=== PATIENT | female | born 1955 ===

== ENCOUNTER 2016-10-12 17:58 | Emergency (ER) | payer MEDICAID ==
[2016-10-12 18:34] VITALS: BMI 28.8
[2016-10-12 18:38] VITALS: BP 115/79; PULSE 97; RESP 17; TEMP 98.6; O2SAT 95
--- NOTE | 2016-10-12 18:46 | ED PDOC ---
Arrival/HPI - General Chief Complaint: Lower Extremity Problem/Injury Time Seen by Provider: 10/12/16 18:38 Historian: Patient - History of Present Illness Narrative History of Present Illness (Text): 10/12/16 18:43 61yo female in ED for complaint of left foot pain and back pain s/p trauma. States she slipped while walking and fell, landing on her back. She is not sure how she injured her foot. Foot pain is with weight bearing. Back pain is with movement. Denies hitting her had any where. Denies LOC, nausea, vomiting, focal weakness, focal/urinary incontinence, hitting head anywhere, visual change. Past Medical History - Provider Review Nursing Documentation Reviewed: Yes - Infectious Disease Hx of Infectious Diseases: None - Reproductive Menopause: Yes - Cardiac Hx Cardiac Disorders: Yes Hx Hypertension: Yes - Pulmonary Hx Respiratory Disorders: No - Neurological Hx Neurological Disorder: No - HEENT Hx HEENT Disorder: No - Renal Hx Renal Disorder: No - Endocrine/Metabolic Hx Endocrine Disorders: No - Hematological/Oncological Hx Blood Disorders: No - Integumentary Hx Dermatological Disorder: No - Musculoskeletal/Rheumatological Hx Musculoskeletal Disorders: No - Gastrointestinal Hx Gastrointestinal Disorders: No - Genitourinary/Gynecological Hx Genitourinary Disorders: No - Psychiatric Hx Psychophysiologic Disorder: Yes Hx Depression: Yes Hx Substance Use: No - Anesthesia Hx Anesthesia: No Hx Anesthesia Reactions: No Hx Malignant Hyperthermia: No Family/Social History - Physician Review Nursing Documentation Reviewed: Yes Family/Social History: Unknown Family HX Smoking Status: Never Smoked Hx Alcohol Use: No Hx Substance Use: No Allergies/Home Meds Allergies/Adverse Reactions: Allergies No Known Allergies Allergy (Verified 08/31/15 14:11) Review of Systems - Physician Review All systems were reviewed & negative as marked: Yes - Review of Systems Constitutional: Normal Eyes: Normal ENT: Normal Respiratory: Normal Cardiovascular: Normal Gastrointestinal: Normal Genitourinary Female: Normal Musculoskeletal: Arthralgias (LEft foot/ankle pain), Back Pain Skin: Normal Neurological: Normal Endocrine: Normal Hemo/Lymphatic: Normal Psychiatric: Normal Physical Exam Vital Signs Reviewed: Yes Vital Signs Temp Pulse Resp BP Pulse Ox 10/12/16 18:34 98.6 F 97 H 17 115/79 95 10/12/16 17:59 98.6 F 9 L 17 115/79 95 Temperature: Afebrile Blood Pressure: Normal Pulse: Regular Respiratory Rate: Normal Appearance: Positive for: Well-Appearing, Non-Toxic, Comfortable Pain Distress: None Mental Status: Positive for: Alert and Oriented X 3 - Systems Exam Head: Present: Atraumatic, Normocephalic Pupils: Present: PERRL Extroacular Muscles: Present: EOMI Conjunctiva: Present: Normal Mouth: Present: Moist Mucous Membranes Neck: Present: Normal Range of Motion Respiratory/Chest: Present: Clear to Auscultation, Good Air Exchange. No: Respiratory Distress, Accessory Muscle Use Cardiovascular: Present: Regular Rate and Rhythm, Normal S1, S2. No: Murmurs Abdomen: Present: Normal Bowel Sounds. No: Tenderness, Distention, Peritoneal Signs Back: Present: Paraspinal Tenderness (LEft paralumbar tenderness). No: Midline Tenderness, Pain with Leg Raise Upper Extremity: Present: Normal Inspection. No: Cyanosis, Edema Lower Extremity: Present: NORMAL PULSES, Normal ROM, Tenderness (Lateral left foot), Neurovascularly Intact. No: Edema, Swelling, Erythema, Deformity, Temperature Abnormalties Neurological: Present: GCS=15, CN II-XII Intact, Speech Normal Skin: Present: Warm, Dry, Normal Color. No: Rashes Psychiatric: Present: Alert, Oriented x 3, Normal Insight, Normal Concentration Medical Decision Making ED Course and Treatment: 10/12/16 19:34 Ls xray - No acute finding Left foot - No acute fracture noted Erich wrap applied to foot and ortho shoe given. Cane given. PT ambulated with a cane Referred to his PMD/ortho. TRT ED for any new or worsening symptoms - RAD Interpretation Radiology Orders: 10/12/16 18:39 ANKLE LEFT 3 VIEWS ROUTINE [RAD] Stat 10/12/16 18:40 LS SPINE WITH OBL > 18 YRS OLD [RAD] Stat 10/12/16 18:42 FOOT LEFT 3 VIEWS ROUTINE [RAD] Stat - Medication Orders Current Medication Orders: Discontinued Medications Cyclobenzaprine HCl (Flexeril) 10 mg PO STAT STA Stop: 10/12/16 18:44 Last Admin: 10/12/16 18:55 Dose: 10 MG Ketorolac Tromethamine (Toradol) 60 mg IM STAT STA Stop: 10/12/16 18:44 Last Admin: 10/12/16 18:55 Dose: 60 MG IM Administration Charges Document 10/12/16 18:55 SRE (Rec: 10/12/16 18:55 SRE [id number]) Injection Site MAR Injection Site Left Gluteus Kirill Charges for Administration # of IM Administrations 1 Disposition/Present on Arrival - Present on Arrival Any Indicators Present on Arrival: No History of DVT/PE: No History of Uncontrolled Diabetes: No Urinary Catheter: No History of Decub. Ulcer: No History Surgical Site Infection Following: None - Disposition Have Diagnosis and Disposition been Completed?: Yes Diagnosis: Back pain, Foot sprain Disposition: HOME/ ROUTINE Disposition Time: 19:40 Patient Plan: Discharge Condition: STABLE Discharge Instructions (ExitCare): Back Pain (ED), Foot Sprain (ED) Additional Instructions: Follow up with your doctor/Orthopedist Return to ED for any new or worsening symptoms Prescriptions: Cyclobenzaprine [Cyclobenzaprine HCl] 10 mg PO TID #10 tab Naproxen [Naprosyn] 500 mg PO BID #20 tab Referrals: Jaquan Stringer III, MD [Medical Doctor] - Follow up with primary
--- NOTE | 2016-10-13 10:48 | RAD ---
PROCEDURE: Left Ankle Radiographs. HISTORY: ankle pain s/p trauma COMPARISON: None FINDINGS: BONES: Normal. No fracture. JOINTS: Normal. No osteoarthritis. Ankle mortise maintained. Talar dome intact SOFT TISSUES: Several small calcifications within the lower pretibial soft tissues possibly vascular in origin. . OTHER FINDINGS: None. IMPRESSION: No evidence of acute displaced fracture nor dislocation. Small posterior and at tiny plantar surface calcaneal enthesophytes.
--- NOTE | 2016-10-13 11:46 | RAD ---
PROCEDURE: Left Foot Radiographs. HISTORY: foot pain s/p trauma COMPARISON: None. FINDINGS: BONES: Normal. No fracture. No evidence of acute displaced fracture nor dislocation. Small posterior and at tiny plantar surface calcaneal enthesophytes. JOINTS: Normal. SOFT TISSUES: Normal. OTHER FINDINGS: None. IMPRESSION: No evidence of acute displaced fracture nor dislocation. Small posterior and at tiny plantar surface calcaneal enthesophytes.
--- NOTE | 2016-10-13 13:19 | RAD ---
PROCEDURE: Radiographs of the Lumbar Spine. HISTORY: back pain s/p trauma COMPARISON: No prior. FINDINGS: BONES: Normal alignment. No listhesis. No fracture. DISC SPACES: Disc degenerative changes lower thoracic spine. OTHER FINDINGS: None. IMPRESSION: No acute findings related to/accounting for the clinical presentation.
== END 2016-10-12 19:52 | disposition home or self-care (01) ==
LOC: ED 17:58
DX: M54.9 Dorsalgia, unspecified (principal); S93.602A Unspecified sprain of left foot, initial encounter; W01.0XXA Fall on same level from slipping, tripping and stumbling without subsequent striking against object, initial encounter; Y93.01 Activity, walking, marching and hiking
CPT/HCPCS: 72110; 73610; 73630; 96372; 99285; J1885

== ENCOUNTER 2016-11-02 18:30 | Emergency (ER) | payer MEDICAID ==
[2016-11-02 18:30] VITALS: BMI 28.8
[2016-11-02 18:40] VITALS: TEMP 98.2
--- NOTE | 2016-11-02 19:07 | ED PDOC ---
Arrival/HPI - General Chief Complaint: Shortness Of Breath Time Seen by Provider: 11/02/16 19:06 Historian: Patient - History of Present Illness Narrative History of Present Illness (Text): 11/02/16 19:06 Patient is 61 y/o F, history of bronchitis who presents to the emergency department with small headache and some shortness of breath after inhaling fumes prior to arrival. Patient states she was trying to unclog pipes with 100% ammonia. She states she was in a small enclosed bathroom and felt like she was about to be overcome by the fumes. She states she was wearing a t-shirt over her mouth and the ammonia did not splash on her, only the fumes were inhaled. No chest pain, dizziness, or other complaints. She reports that she still has some headache but the shortness of breath has resolved. Time/Duration: Prior to Arrival Symptom Onset: Sudden Symptom Course: Unchanged Modifying Factors (Text): None Past Medical History - Provider Review Nursing Documentation Reviewed: Yes - Infectious Disease Hx of Infectious Diseases: None - Cardiac Hx Cardiac Disorders: Yes Hx Hypertension: Yes - Pulmonary Hx Respiratory Disorders: No - Neurological Hx Neurological Disorder: No - HEENT Hx HEENT Disorder: No - Renal Hx Renal Disorder: No - Endocrine/Metabolic Hx Endocrine Disorders: No - Hematological/Oncological Hx Blood Disorders: No - Integumentary Hx Dermatological Disorder: No - Musculoskeletal/Rheumatological Hx Musculoskeletal Disorders: No - Gastrointestinal Hx Gastrointestinal Disorders: No - Genitourinary/Gynecological Hx Genitourinary Disorders: No - Psychiatric Hx Psychophysiologic Disorder: Yes Hx Depression: Yes Hx Substance Use: No - Anesthesia Hx Anesthesia: No Hx Anesthesia Reactions: No Hx Malignant Hyperthermia: No Family/Social History - Physician Review Nursing Documentation Reviewed: Yes Family/Social History: Unknown Family HX Smoking Status: Never Smoked Hx Alcohol Use: No Hx Substance Use: No Allergies/Home Meds Allergies/Adverse Reactions: Allergies No Known Allergies Allergy (Verified 11/02/16 18:36) Home Medications: Home Meds Medication Instructions Recorded Confirmed Lorazepam [Ativan] 1 tab PO DAILY 11/02/16 11/02/16 QUEtiapine [SEROquel] 50 mg PO DAILY 11/02/16 11/02/16 Sertraline [Zoloft] 50 mg PO DAILY 11/02/16 11/02/16 Zolpidem [Ambien] 10 mg PO HS 11/02/16 11/02/16 Review of Systems - Review of Systems Eyes: absent: Vision Changes ENT: absent: Hearing Changes Respiratory: SOB Cardiovascular: absent: Chest Pain Gastrointestinal: absent: Abdominal Pain, Nausea, Vomiting Genitourinary Female: absent: Dysuria, Frequency, Hematuria Musculoskeletal: absent: Arthralgias Skin: absent: Rash Neurological: Headache Endocrine: absent: Diaphoresis Psychiatric: absent: Depression Physical Exam Vital Signs Reviewed: Yes Vital Signs Temp Pulse Resp BP Pulse Ox 11/02/16 20:12 80 16 121/70 100 11/02/16 19:20 13 100 11/02/16 19:10 13 127/76 100 11/02/16 18:39 98.2 F 91 H 24 94/69 L 99 Temperature: Afebrile Blood Pressure: Normal Pulse: Regular Respiratory Rate: Normal Appearance: Positive for: Well-Appearing, Non-Toxic, Comfortable Pain Distress: None Mental Status: Positive for: Alert and Oriented X 3 - Systems Exam Head: Present: Atraumatic, Normocephalic Pupils: Present: PERRL Extroacular Muscles: Present: EOMI Conjunctiva: Present: Normal Mouth: Present: Moist Mucous Membranes Pharnyx: No: ERYTHEMA, EXUDATE Neck: Present: Normal Range of Motion Respiratory/Chest: Present: Clear to Auscultation, Good Air Exchange. No: Respiratory Distress, Accessory Muscle Use Cardiovascular: Present: Regular Rate and Rhythm, Normal S1, S2. No: Murmurs Abdomen: Present: Normal Bowel Sounds. No: Tenderness, Distention, Peritoneal Signs Back: Present: Normal Inspection Upper Extremity: Present: Normal Inspection. No: Cyanosis, Edema Lower Extremity: Present: Normal Inspection. No: Edema Neurological: Present: GCS=15, CN II-XII Intact, Speech Normal Skin: Present: Warm, Dry, Normal Color. No: Rashes Psychiatric: Present: Alert, Oriented x 3, Normal Insight, Normal Concentration Medical Decision Making ED Course and Treatment: 11/02/16 19:08 EKG shows NSR at 86bpm with normal intervals and no ST changes Patient presenting after inhalation ammonia fumes. Mouth was covered with tshirt and there was no splash injury. Patient is well appearing, saturating normally, talking in complete sentences and has lungs cta b/l. Spoke to poison control who recommends observation for 1-2 hours. Patient instructed on importance of wearing mask and gloves when using ammonia and to not use it in an enclosed space. On reevaluation patient reports headache resolved after tylenol. She continues to be well appearing, saturating normally and in NAD. Patient has been monitored for 1.5 hours per poison control and continues to be asymptomatic. Will dc. - Medication Orders Current Medication Orders: Discontinued Medications Acetaminophen (Tylenol 325mg Tab) 975 mg PO STAT STA Stop: 11/02/16 19:09 Last Admin: 11/02/16 19:21 Dose: 975 mg Disposition/Present on Arrival - Present on Arrival Any Indicators Present on Arrival: No History of DVT/PE: No History of Uncontrolled Diabetes: No Urinary Catheter: No History of Decub. Ulcer: No History Surgical Site Infection Following: None - Disposition Have Diagnosis and Disposition been Completed?: Yes Diagnosis: Adverse effect of inhaled anesthetic Disposition: HOME/ ROUTINE Disposition Time: 19:47 Patient Plan: Discharge Patient Problems: Current Active Problems Problem Status Onset Adverse effect of inhaled anesthetic Acute Condition: GOOD Print Language: CITIZEN OF [place] Additional Instructions: Use care when working with chemicals. Do not use ammonia in an enclosed space. Only use ammonia while wearing mask and gloves. Follow-up with PMD within 2 days. Return to ED if condition worsens. Forms: [employer] [facility] Discharge (Greenlandic)
[2016-11-02 19:11] VITALS: O2SAT 100
[2016-11-02 20:14] VITALS: BP 121/70; PULSE 80; RESP 16
--- NOTE | 2016-11-03 15:38 | CARD ---
APPROVED REPORT EKG Measurement Heart [id number] CT [id number] [id number] <Conclusion> Normal sinus rhythm Cannot rule out Inferior infarct, age undetermined Abnormal ECG
== END 2016-11-02 20:15 | disposition home or self-care (01) ==
LOC: ED 18:30
DX: T41.0X1A Poisoning by inhaled anesthetics, accidental (unintentional), initial encounter (principal); Y92.89 Other specified places as the place of occurrence of the external cause

== ENCOUNTER 2017-04-20 00:10 | Emergency (ER) | payer MEDICAID ==
[2017-04-20] MEDS ORDERED: Promethazine/Cod 6.25mg-10mg/5ml Syr UD PO STA (00:26)
[2017-04-20] MEDS ORDERED: Albuterol-Ipratrop 3 mg / 0.5 (3 ml) UD IH STA (00:26)
[2017-04-20 00:27] VITALS: BP 118/79; PULSE 91; TEMP 98.3; BMI 32.5
--- NOTE | 2017-04-20 00:29 | ED PDOC ---
Arrival/HPI - General Chief Complaint: Shortness Of Breath Time Seen by Provider: 04/20/17 00:17 Historian: Patient - History of Present Illness Narrative History of Present Illness (Text): 04/20/17 00:24 Sabina Valiente is a 62 year old female, whose past medical history includes hypertension, who presents to the Emergency department complaining of shortness of breath tonight. Patient states she has been experiencing fever, productive cough, and chest discomfort after coughing for the past 2-3 days. Patient states she developed shortness of breath tonight, became concerned, and came to ED for further evaluation. Patient denies any nausea, vomiting, diarrhea, urinary symptoms, back pain, neck pain, headache, dizziness, or any other complaints. Time/Duration: < week (2-3 days) Symptom Onset: Gradual Symptom Course: Unchanged Activities at Onset: Light Context: Home Past Medical History - Provider Review Nursing Documentation Reviewed: Yes - Infectious Disease Hx of Infectious Diseases: None - Cardiac Hx Cardiac Disorders: Yes Hx Hypertension: Yes - Pulmonary Hx Respiratory Disorders: No - Neurological Hx Neurological Disorder: No - HEENT Hx HEENT Disorder: No - Renal Hx Renal Disorder: No - Endocrine/Metabolic Hx Endocrine Disorders: No - Hematological/Oncological Hx Blood Disorders: No - Integumentary Hx Dermatological Disorder: No - Musculoskeletal/Rheumatological Hx Musculoskeletal Disorders: No - Gastrointestinal Hx Gastrointestinal Disorders: No - Genitourinary/Gynecological Hx Genitourinary Disorders: No - Psychiatric Hx Psychophysiologic Disorder: Yes Hx Depression: Yes Hx Substance Use: No - Anesthesia Hx Anesthesia: No Hx Anesthesia Reactions: No Hx Malignant Hyperthermia: No Family/Social History - Physician Review Nursing Documentation Reviewed: Yes Family/Social History: Unknown Family HX Smoking Status: Never Smoked Hx Alcohol Use: No Hx Substance Use: No Allergies/Home Meds Allergies/Adverse Reactions: Allergies No Known Allergies Allergy (Verified 11/02/16 18:36) Home Medications: Home Meds Medication Instructions Recorded Confirmed Lorazepam [Ativan] 1 tab PO DAILY 11/02/16 04/20/17 QUEtiapine [SEROquel] 50 mg PO DAILY 11/02/16 04/20/17 Sertraline [Zoloft] 50 mg PO DAILY 11/02/16 04/20/17 Zolpidem [Ambien] 10 mg PO HS 05/05/17 10/21/17 Review of Systems - Physician Review All systems were reviewed & negative as marked: Yes - Review of Systems Constitutional: Fevers Eyes: Normal ENT: Normal Respiratory: SOB, Cough, Sputum Cardiovascular: Chest Pain Gastrointestinal: Normal. absent: Abdominal Pain, Diarrhea, Nausea, Vomiting Genitourinary Female: Normal. absent: Dysuria, Frequency, Hematuria, Urine Output Changes Musculoskeletal: Normal. absent: Back Pain, Neck Pain Skin: Normal. absent: Rash Neurological: Normal. absent: Headache, Dizziness Endocrine: Normal Hemo/Lymphatic: Normal Psychiatric: Normal Physical Exam Vital Signs Reviewed: Yes Vital Signs Temp Pulse Resp BP Pulse Ox 04/20/17 02:07 18 99 04/20/17 01:59 19 98 04/20/17 00:25 98.3 F 91 H 20 118/79 97 Temperature: Afebrile Blood Pressure: Normal Pulse: Regular Respiratory Rate: Normal Appearance: Positive for: Well-Appearing, Non-Toxic Pain Distress: None Mental Status: Positive for: Alert and Oriented X 3 - Systems Exam Head: Present: Atraumatic, Normocephalic Pupils: Present: PERRL Extroacular Muscles: Present: EOMI Conjunctiva: Present: Normal Mouth: Present: Moist Mucous Membranes Neck: Present: Normal Range of Motion Respiratory/Chest: Present: Clear to Auscultation, Good Air Exchange. No: Respiratory Distress, Accessory Muscle Use Cardiovascular: Present: Regular Rate and Rhythm, Normal S1, S2. No: Murmurs Abdomen: Present: Normal Bowel Sounds. No: Tenderness, Distention, Peritoneal Signs Back: Present: Normal Inspection Upper Extremity: Present: Normal Inspection. No: Cyanosis, Edema Lower Extremity: Present: Normal Inspection. No: Edema Neurological: Present: GCS=15, CN II-XII Intact, Speech Normal Skin: Present: Warm, Dry, Normal Color. No: Rashes Psychiatric: Present: Alert, Oriented x 3, Normal Insight, Normal Concentration Medical Decision Making ED Course and Treatment: 04/20/17 00:24 Impression: 62 year old female complaining of fever, productive cough, chest discomfort, and shortness of breath. Differential Diagnosis included but are not limited to: bronchitis vs. pneumonia Plan: -- EKG -- CXR -- Labs -- Duoneb -- Phenergan/Codeine -- Reassess and disposition Prior Visits: Notes and results from previous visits were reviewed. On 11/02/2016, pt was seen in the Emergency department for headache and shortness of breath after inhaling cleaning fumes. Pt was d/c home. Progress Notes: Reviewed EKG, NSR at 88 bpm. Non-specific ST/T wave changes. 04/20/17 01:35 Reviewed radiology, CXR shows no acute processes. 04/20/17 01:48 On reevaluation the patient feels better and is in no acute distress. I have discussed the results and plan with the patient, who expresses understanding. Patient given the opportunity to ask question, all questions were answered and there is agreement with the plan to discharge the patient home. Patient is stable for discharge. Patient was instructed to follow up with physician/clinic in 1-2 days or return if symptoms persist/worsen or new concerning symptoms arise. Re-evaluation Time: 01:48 Reassessment Condition: Re-examined, Improved - Lab Interpretations Lab Results: 04/20/17 00:49 04/20/17 00:49 Lab Results 04/20/17 00:49: Sodium 142, Potassium 4.1, Chloride 107, Carbon Dioxide 25, Anion Gap 14, BUN 18, Creatinine 0.7, Est GFR ( Amer) > 60, Est GFR (Non- Af Amer) > 60, Random Glucose 131 H, Calcium 9.6, Total Bilirubin 0.5, AST 30, ALT 33, Alkaline Phosphatase 101, Total Protein 7.6, Albumin 4.2, Globulin 3.4, Albumin/Globulin Ratio 1.2 04/20/17 00:49: WBC 12.7 H, RBC 4.98, Hgb 14.4, Hct 40.0, MCV 80.3, MCH 28.9, MCHC 36.0, RDW 14.4, Plt Count 290, MPV 10.2, Gran % 59.0, Lymph % (Auto) 28.1, Hubbard % (Auto) 8.9 H, Eos % (Auto) 3.5, Baso % (Auto) 0.5, Gran # 7.50 H, Lymph # 3.6 H, Hubbard # 1.1 H, Eos # 0.5, Baso # 0.07 I have reviewed the lab results: Yes - RAD Interpretation Radiology Orders: 04/20/17 00:25 CHEST TWO VIEWS (PA/LAT) [RAD] Stat Staff Research Associate: ED Physician - EKG Interpretation Interpreted by ED Physician: Yes Type: 12 lead EKG - Medication Orders Current Medication Orders: Discontinued Medications Albuterol/Ipratropium (Duoneb 3 Mg/0.5 Mg (3 Ml) Ud) 3 ml IH STAT STA Stop: 04/20/17 00:27 Last Admin: 04/20/17 00:55 Dose: 3 ml Promethazine HCl/Codeine (Phenergan/Codeine Oral Syrup) 5 ml PO ONCE STA Stop: 04/20/17 00:27 Last Admin: 04/20/17 00:55 Dose: 5 ml - Scribe Statement The provider has reviewed the documentation as recorded by the Scribe Tere Sy All medical record entries made by the Scribe were at my direction and personally dictated by me. I have reviewed the chart and agree that the record accurately reflects my personal performance of the history, physical exam, medical decision making, and the department course for this patient. I have also personally directed, reviewed, and agree with the discharge instructions and disposition. Disposition/Present on Arrival - Present on Arrival Any Indicators Present on Arrival: No History of DVT/PE: No History of Uncontrolled Diabetes: No Urinary Catheter: No History of Decub. Ulcer: No History Surgical Site Infection Following: None - Disposition Have Diagnosis and Disposition been Completed?: Yes Diagnosis: Bronchitis Disposition: HOME/ ROUTINE Disposition Time: 01:48 Condition: GOOD Discharge Instructions (ExitCare): Acute Bronchitis (ED) Prescriptions: levoFLOXacin [Levaquin] 500 mg PO DAILY #10 tab Promethazine/Codeine [Codeine/Promethazine 10 MG/5 Ml-6.25 MG/5 Ml] 5 ml PO QID #160 ml Albuterol HFA [Ventolin HFA] 1 puff IH QID #1 puff Referrals: Sandy Mccray MD [Primary Care Provider] - Follow up with primary Forms: [employer] (Al[place]ian)
[2017-04-20 00:55] LABS: BASO # 0.07 K/mm3 (0.0-2.0); BASO % 0.5 % (0.0-3.0); EOS # 0.5 (0.0-0.7); EOS % 3.5 % (1.5-5.0); GRAN # 7.5 (1.4-6.5); LYMPH # 3.6 (1.2-3.4); LYMPH % 28.1 % (22.0-35.0); MEAN CELL VOLUME 80.3 fl (80.0-105.0); MEAN CORPUSCULAR HEMOGLOBIN 28.9 pg (25.0-35.0); MEAN PLATELET VOLUME 10.2 fl (7.0-11.0); MONO # 1.1 (0.1-0.6); MONO % 8.9 % (1.0-6.0); RED CELL DISTRIBUTION WIDTH 14.4 % (11.5-14.5); WHITE BLOOD COUNT 12.7 10^3/ul (4.5-11.0)
[2017-04-20 01:04] LABS: ALB/GLOB RATIO 1.2 (1.1-1.8); ALKALINE PHOSPHATASE 101 U/L (38-126); ALT/SGPT 33 U/L (7-56); AST/SGOT 30 U/L (14-36); BILIRUBIN,TOTAL 0.5 mg/dL (0.2-1.3); BLOOD UREA NITROGEN 18 mg/dL (7-21); CALCIUM 9.6 mg/dL (8.4-10.5); CARBON DIOXIDE 25 mmol/L (21-33); CHLORIDE 107 mmol/L (98-107); GFR AFRICAN-AMERICAN > 60; GLUCOSE,RANDOM 131 mg/dL (70-110); POTASSIUM 4.1 mmol/L (3.6-5.0); SODIUM 142 mmol/L (132-148); TOTAL PROTEIN 7.6 g/dL (5.8-8.3)
[2017-04-20 02:08] VITALS: RESP 18; O2SAT 99
--- NOTE | 2017-04-20 10:19 | RAD ---
HISTORY: fall COMPARISON: 06/27/2015 TECHNIQUE: Chest PA and lateral FINDINGS: LUNGS: No active pulmonary disease. PLEURA: No significant pleural effusion identified. No pneumothorax apparent. CARDIOVASCULAR: Normal. OSSEOUS STRUCTURES: No significant abnormalities. VISUALIZED UPPER ABDOMEN: Normal. OTHER FINDINGS: None. IMPRESSION: No active disease.
--- NOTE | 2017-04-20 14:36 | CARD ---
APPROVED REPORT EKG Measurement Heart [id number] <Conclusion> Normal sinus rhythm Low voltage QRS Possible Inferior infarct, age undetermined Abnormal ECG
== END 2017-04-20 02:08 | disposition home or self-care (01) ==
LOC: ED 00:10
DX: J20.9 Acute bronchitis, unspecified (principal); I10 Essential (primary) hypertension

== ENCOUNTER 2017-05-31 16:54 | Emergency (ER) | payer MEDICAID ==
[2017-05-31 17:04] VITALS: BMI 29.1
[2017-05-31] MEDS ORDERED: Albuterol-Ipratrop 3 mg / 0.5 (3 ml) UD IH STA ×2 (17:10→17:24)
--- NOTE | 2017-05-31 17:18 | ED PDOC ---
Arrival/HPI - General Chief Complaint: Cough, Cold, Congestion Time Seen by Provider: 05/31/17 17:02 - History of Present Illness Narrative History of Present Illness (Text): 05/31/17 17:17 62 yo female, hx o htn, presents with cough for last 3 days, cp with coughing, subjective dyspnea, and subjective fever. no vomiting no diarrhea, no other complaints Past Medical History - Infectious Disease Hx of Infectious Diseases: None - Cardiac Hx Cardiac Disorders: Yes Hx Hypertension: Yes - Pulmonary Hx Respiratory Disorders: No - Neurological Hx Neurological Disorder: No - HEENT Hx HEENT Disorder: No - Renal Hx Renal Disorder: No - Endocrine/Metabolic Hx Endocrine Disorders: No - Hematological/Oncological Hx Blood Disorders: No - Integumentary Hx Dermatological Disorder: No - Musculoskeletal/Rheumatological Hx Musculoskeletal Disorders: No - Gastrointestinal Hx Gastrointestinal Disorders: No - Genitourinary/Gynecological Hx Genitourinary Disorders: No - Psychiatric Hx Psychophysiologic Disorder: Yes Hx Depression: Yes Hx Substance Use: No - Anesthesia Hx Anesthesia: No Hx Anesthesia Reactions: No Hx Malignant Hyperthermia: No Family/Social History - Physician Review Nursing Documentation Reviewed: Yes Family/Social History: Unknown Family HX Smoking Status: Never Smoked Hx Alcohol Use: No Hx Substance Use: No Allergies/Home Meds Allergies/Adverse Reactions: Allergies No Known Allergies Allergy (Verified 05/31/17 17:05) Review of Systems - Review of Systems Constitutional: Normal Eyes: Normal ENT: Normal Respiratory: SOB, Cough Cardiovascular: Chest Pain Gastrointestinal: Normal Genitourinary Female: Normal Musculoskeletal: Normal Skin: Normal Neurological: Normal Endocrine: Normal Hemo/Lymphatic: Normal Psychiatric: Normal Physical Exam Vital Signs Temp Pulse Resp BP Pulse Ox 05/31/17 18:31 98.1 F 96 H 18 134/72 100 05/31/17 17:50 98.2 F 98 H 17 130/72 100 05/31/17 17:03 98.3 F 90 18 122/75 99 Temperature: Afebrile Blood Pressure: Normal Pulse: Regular Respiratory Rate: Normal Appearance: Positive for: Well-Appearing, Non-Toxic, Comfortable Pain Distress: None Mental Status: Positive for: Alert and Oriented X 3 - Systems Exam Head: Present: Atraumatic, Normocephalic Pupils: Present: PERRL Extroacular Muscles: Present: EOMI Conjunctiva: Present: Normal Mouth: Present: Moist Mucous Membranes Neck: Present: Normal Range of Motion Respiratory/Chest: Present: Good Air Exchange, Wheezes (scattered). No: Respiratory Distress, Accessory Muscle Use Cardiovascular: Present: Regular Rate and Rhythm, Normal S1, S2. No: Murmurs Abdomen: Present: Normal Bowel Sounds. No: Tenderness, Distention, Peritoneal Signs Back: Present: Normal Inspection Upper Extremity: Present: Normal Inspection. No: Cyanosis, Edema Lower Extremity: Present: Normal Inspection. No: Edema Neurological: Present: GCS=15, CN II-XII Intact, Speech Normal Skin: Present: Warm, Dry, Normal Color. No: Rashes Psychiatric: Present: Alert, Oriented x 3, Normal Insight, Normal Concentration Medical Decision Making ED Course and Treatment: 05/31/17 17:30 ekg nsr [address] wave change changes - Lab Interpretations Lab Results: 05/31/17 17:18 05/31/17 17:18 Lab Results 05/31/17 17:18: Sodium 142, Potassium 4.5, Chloride 105, Carbon Dioxide 29, Anion Gap 12, BUN 16, Creatinine 0.8, Est GFR ( Amer) > 60, Est GFR (Non- Af Amer) > 60, Random Glucose 145 H, Calcium 9.8, Magnesium 2.1, Total Bilirubin 0.6, AST 33, ALT 29, Alkaline Phosphatase 109, Lactate Dehydrogenase 567, Total Creatine Kinase 58, Troponin I < 0.01, NT-Pro-B Natriuret Pep 138, Total Protein 7.9, Albumin 4.3, Globulin 3.6, Albumin/Globulin Ratio 1.2 05/31/17 17:18: PT 11.3, INR 1.04, APTT 30.4 05/31/17 17:18: WBC 9.3 D, RBC 4.88, Hgb 14.1, Hct 39.8, MCV 81.6, MCH 28.9, MCHC 35.4, RDW 14.7 H, Plt Count 303, MPV 10.1, Gran % 60.9, Lymph % (Auto) 25.6 , [place] % (Auto) 8.4 H, Eos % (Auto) 4.1, Baso % (Auto) 1.0, Gran # 5.66, Lymph # 2.4, [place] # 0.8 H, Eos # 0.4, Baso # 0.09 - RAD Interpretation Radiology Orders: 05/31/17 17:09 CHEST PORTABLE [RAD] Stat - Medication Orders Current Medication Orders: Discontinued Medications Acetaminophen (Tylenol 325mg Tab) 975 mg PO STAT STA Stop: 05/31/17 18:00 Last Admin: 05/31/17 18:06 Dose: 975 mg MAR Pain/Vitals Document 05/31/17 18:06 IT (Rec: 05/31/17 18:06 IT [id number]) Pain Reassessment Is This A Pain ReAssessment? No Sleep Is patient sleeping during reassessment? No Presence of Pain Presence of Pain Yes Pain Scale Used Pain Scale Used Numeric Albuterol/Ipratropium (Duoneb 3 Mg/0.5 Mg (3 Ml) Ud) 3 ml IH STAT STA Stop: 05/31/17 17:11 Last Admin: 05/31/17 17:21 Dose: 3 ml Albuterol/Ipratropium (Duoneb 3 Mg/0.5 Mg (3 Ml) Ud) 3 ml IH STAT STA Stop: 05/31/17 17:25 Last Admin: 05/31/17 17:44 Dose: 3 ml Methylprednisolone (Solu-Medrol) 125 mg IVP STAT STA Stop: 05/31/17 17:11 Last Admin: 05/31/17 17:21 Dose: 125 mg IVP Administration Document 05/31/17 17:21 IT (Rec: 05/31/17 17:21 IT [id number]) Charges for Administration # of IVP Administrations 1 Disposition/Present on Arrival - Present on Arrival Any Indicators Present on Arrival: No History of DVT/PE: No History of Uncontrolled Diabetes: No Urinary Catheter: No History of Decub. Ulcer: No History Surgical Site Infection Following: None - Disposition Have Diagnosis and Disposition been Completed?: Yes Diagnosis: Acute bronchitis Disposition: HOME/ ROUTINE Disposition Time: 07:00 Condition: STABLE Discharge Instructions (ExitCare): Acute Bronchitis (ED), How to Use a Nebulizer (ED) Additional Instructions: please follow up with your doctor. return to er with worsening symptoms or concerns. Prescriptions: Albuterol HFA [Ventolin HFA 90 mcg/actuation (8 g)] 2 puff IH [id number] PRN #1 puff PRN Reason: Wheezing Prednisone 50 mg PO DAILY #5 tab Referrals: [facility], [Non-Staff] - Follow up with primary Forms: [employer] (Swedish)
[2017-05-31 17:34] LABS: BASO # 0.09 K/mm3 (0.0-2.0); EOS # 0.4 (0.0-0.7); EOS % 4.1 % (1.5-5.0); GRAN # 5.66 (1.4-6.5); GRAN % 60.9 % (50.0-68.0); HEMATOCRIT 39.8 % (36.0-48.0); LYMPH # 2.4 (1.2-3.4); LYMPH % 25.6 % (22.0-35.0); MEAN CELL VOLUME 81.6 fl (80.0-105.0); MEAN CORPUSCULAR HEMOGLOBIN 28.9 pg (25.0-35.0); MEAN CORPUSCULAR HGB CONC 35.4 g/dl (31.0-37.0); MEAN PLATELET VOLUME 10.1 fl (7.0-11.0); MONO # 0.8 (0.1-0.6); MONO % 8.4 % (1.0-6.0); RED CELL DISTRIBUTION WIDTH 14.7 % (11.5-14.5); WHITE BLOOD COUNT 9.3 10^3/ul (4.5-11.0)
[2017-05-31 17:41] LABS: INR 1.04 (0.93-1.08); PARTIAL THROMBOPLASTIN TIME 30.4 Seconds (25.1-36.5)
[2017-05-31 17:47] LABS: ALB/GLOB RATIO 1.2 (1.1-1.8); ALKALINE PHOSPHATASE 109 U/L (38-126); ALT/SGPT 29 U/L (7-56); AST/SGOT 33 U/L (14-36); BILIRUBIN,TOTAL 0.6 mg/dL (0.2-1.3); BLOOD UREA NITROGEN 16 mg/dL (7-21); CALCIUM 9.8 mg/dL (8.4-10.5); CARBON DIOXIDE 29 mmol/L (21-33); CHLORIDE 105 mmol/L (98-107); GFR AFRICAN-AMERICAN > 60; GLUCOSE,RANDOM 145 mg/dL (70-110); MAGNESIUM 2.1 mg/dL (1.7-2.2); POTASSIUM 4.5 mmol/L (3.6-5.0); SODIUM 142 mmol/L (132-148); TOTAL PROTEIN 7.9 g/dL (5.8-8.3)
[2017-05-31 17:51] VITALS: O2SAT 100
[2017-05-31 17:58] LABS: TROPONIN I < 0.01 ng/mL
[2017-05-31 18:33] VITALS: BP 134/72; PULSE 96; RESP 18; TEMP 98.1
--- NOTE | 2017-05-31 19:53 | RAD ---
HISTORY: cough COMPARISON: Chest x-ray performed 04/20/17 TECHNIQUE: Chest, one view. FINDINGS: Examination limited by habitus. LUNGS: No focal consolidation. Please note that chest x-ray has limited sensitivity for the detection of pulmonary masses. PLEURA: No significant pleural effusion identified. No definite pneumothorax . CARDIOVASCULAR: The cardiomediastinal silhouette appears within normal limits of size. OSSEOUS STRUCTURES: No acute osseous abnormality identified. VISUALIZED UPPER ABDOMEN: Unremarkable. OTHER FINDINGS: None. IMPRESSION: No focal consolidation, significant pleural effusion, or definite pneumothorax identified.
--- NOTE | 2017-06-01 22:04 | CARD ---
APPROVED REPORT EKG Measurement Heart [id number] [id number] <Conclusion> Normal sinus rhythm Low voltage QRS Borderline ECG
== END 2017-05-31 18:35 | disposition home or self-care (01) ==
LOC: ED 16:54
DX: J20.9 Acute bronchitis, unspecified (principal)
CPT/HCPCS: 71010; 80053; 82550; 83615; 83735; 83880; 84484; 85025; 85610; 85730; 93005; 94640; 96374; 99283; J2930

== ENCOUNTER 2017-12-01 19:39 | Emergency (ER) | payer MEDICAID ==
[2017-12-01 19:39] VITALS: BMI 29.1
[2017-12-01 20:32] VITALS: TEMP 97.9
--- NOTE | 2017-12-01 21:13 | ED PDOC ---
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 Pt reports sore throat, fever/chills and bodyaches one day after her partner came down with the same symptoms. Pt was admitted 2 weeks ago for an antibiotic reaction for a UTI. Pt says she has frequent UTIs and is always put on the same medication. She does not want any antibiotics given today. Denies dysuria, hematuria, chest pain, shortness of breath, stomach pain, nausea, vomiting or diarrhea. She did not receive a flu vaccine this season. States she already took Tylenol and ibuprofen for fever and chills 12/01/17 21:29 Time/Duration: Prior to Arrival Symptom Onset: Gradual Symptom Course: Unchanged Quality: Aching Severity Level: 2, Mild Activities at Onset: Rest Context: Home Past Medical History - Provider Review Nursing Documentation Reviewed: Yes - Travel History Have you recently traveled outside [place] w/in the past 3 mons?: No - Infectious Disease Hx of Infectious Diseases: None - Cardiac Hx Cardiac Disorders: Yes Hx Hypertension: Yes - Pulmonary Hx Respiratory Disorders: No - Neurological Hx Neurological Disorder: No - HEENT Hx HEENT Disorder: No - Renal Hx Renal Disorder: No - Endocrine/Metabolic Hx Endocrine Disorders: No - Hematological/Oncological Hx Blood Disorders: No - Integumentary Hx Dermatological Disorder: No - Musculoskeletal/Rheumatological Hx Musculoskeletal Disorders: No - Gastrointestinal Hx Gastrointestinal Disorders: No - Genitourinary/Gynecological Hx Genitourinary Disorders: No - Psychiatric Hx Psychophysiologic Disorder: Yes Hx Depression: Yes Hx Substance Use: No - Anesthesia Hx Anesthesia: No Hx Anesthesia Reactions: No Hx Malignant Hyperthermia: No Family/Social History - Physician Review Nursing Documentation Reviewed: Yes Family/Social History: Unknown Family HX Smoking Status: Never Smoked Hx Alcohol Use: No Hx Substance Use: No Allergies/Home Meds Allergies/Adverse Reactions: Allergies No Known Allergies Allergy (Verified 05/31/17 17:05) Review of Systems - Review of Systems Constitutional: Normal, Fevers Eyes: Normal ENT: Normal, Sore Throat, Rhinorrhea. absent: Hearing Changes Respiratory: Normal. absent: SOB, Cough Cardiovascular: Normal. absent: Chest Pain Gastrointestinal: Normal. absent: Abdominal Pain, Stool Changes Genitourinary Female: Normal. absent: Dysuria Musculoskeletal: Normal, Arthralgias Skin: Normal Neurological: Normal, Headache Endocrine: Normal. absent: Diaphoresis Hemo/Lymphatic: Normal Psychiatric: Normal Physical Exam Vital Signs Temp Pulse Resp BP Pulse Ox 12/01/17 23:16 80 16 146/72 99 12/01/17 19:40 97.9 F 87 18 134/79 97 Temperature: Afebrile Blood Pressure: Normal Pulse: Regular Respiratory Rate: Normal Appearance: Positive for: Well-Appearing, Non-Toxic, Comfortable Pain Distress: Mild Mental Status: Positive for: Alert and Oriented X 3 - Systems Exam Head: Present: Atraumatic, Normocephalic Pupils: Present: PERRL Extroacular Muscles: Present: EOMI Conjunctiva: Present: Normal Ears: Present: Normal Mouth: Present: Moist Mucous Membranes Pharnyx: Present: ERYTHEMA. No: EXUDATE, TONSILS ENLARGED Neck: Present: Normal Range of Motion Respiratory/Chest: Present: Clear to Auscultation, Good Air Exchange. No: Respiratory Distress, Accessory Muscle Use Cardiovascular: Present: Regular Rate and Rhythm, Normal S1, S2. No: Murmurs Abdomen: Present: Normal Bowel Sounds. No: Tenderness, Distention, Peritoneal Signs Back: Present: Normal Inspection Upper Extremity: Present: Normal Inspection. No: Cyanosis, Edema Lower Extremity: Present: Normal Inspection. No: Edema Neurological: Present: GCS=15, CN II-XII Intact, Speech Normal Skin: Present: Warm, Dry, Normal Color. No: Rashes Psychiatric: Present: Alert, Oriented x 3, Normal Insight, Normal Concentration Medical Decision Making ED Course and Treatment: 12/01/17 21:28 Impression Pt is a 62 yr old female who presents to the ED for flu-like symptoms x 1 day. Mild erythema of the posterior pharynx, no other sig findings on exam; no suprapubic pain but has joint and muscle pain on palpation Plan Labs Rapid Flu Assess and dispo 12/01/17 21:29 Progress Note WBC mildly elevated 12.9 but remains afebrile UA shows small leuk esterase; pt states she recently came off of UTI treatment Advised to drink plenty of fluids and get rest; may require antibiotics for UTI if she becomes symptomatic Follow up with PMD on Saturday Pt hemodynamically stable on d/c - Lab Interpretations Lab Results: 12/01/17 21:30 12/01/17 21:30 Lab Results 12/01/17 21:45: Urine Color Yellow, Urine Appearance Clear, Urine pH 6.5, Ur Specific [place] 1.025, Urine Protein Trace H, Urine Glucose (UA) Negative, Urine Ketones Negative, Urine Blood Negative, Urine Nitrate Negative, Urine Bilirubin Negative, Urine Urobilinogen 1.0 H, Ur Leukocyte Esterase Small H, Urine RBC Negative, Urine WBC 1 - 3, Ur Epithelial Cells 1 - 3, Calcium Oxalate Crystal Trace 12/01/17 21:30: Sodium 143, Potassium 3.8, Chloride 108 H, Carbon Dioxide 23, Anion Gap 16, BUN 13, Creatinine 0.7, Est GFR ( Amer) > 60, Est GFR (Non- Af Amer) > 60, Random Glucose 110, Calcium 9.0, Total Bilirubin 0.2, AST 23, ALT 27, Alkaline Phosphatase 99, Total Protein 7.3, Albumin 4.0, Globulin 3.3, Albumin/Globulin Ratio 1.2 12/01/17 21:30: Influenza Typ A,B (EIA) Negative for flu a/b 12/01/17 21:30: WBC 12.4 H D, RBC 4.72, Hgb 13.6, Hct 37.4, MCV 79.2 L, MCH 28.8 , MCHC 36.4, RDW 14.6 H, Plt Count 298, MPV 10.1, Gran % 56.7, Lymph % (Auto) 33.8, Davis % (Auto) 5.6, Eos % (Auto) 3.3, Baso % (Auto) 0.6, Gran # 7.04 H, Lymph # (Auto) 4.2 H, Davis # (Auto) 0.7 H, Eos # (Auto) 0.4, Baso # (Auto) 0.08 I have reviewed the lab results: Yes Interpretation: Abnormal lab values Disposition/Present on Arrival - Present on Arrival Any Indicators Present on Arrival: Yes History of DVT/PE: No History of Uncontrolled Diabetes: No Urinary Catheter: No History of Decub. Ulcer: No History Surgical Site Infection Following: None - Disposition Have Diagnosis and Disposition been Completed?: Yes Diagnosis: Influenza, Arthralgia Disposition: HOME/ ROUTINE Disposition Time: 22:38 Patient Plan: Discharge Condition: STABLE Discharge Instructions (ExitCare): Flu, Adult (DC), Joint Pain Additional Instructions: Sabina, thank you for letting us take care of you today. Your provider was JESSENIA Eason. You were treated for Influenza and bodyaches. The emergency medical care you received today was directed at your acute symptoms. If you were prescribed any medication, please fill it and take as directed. It may take several days for your symptoms to resolve. Return to the Emergency Department if your symptoms worsen, do not improve, or if you have any other problems. You will need to drink plenty of fluids and get rest over the next few days and take Tylenol of Motrin for fever and pain If you have worsening of symptoms such as a high fever (greater than 103F), return to the emergency department for evaluation or see Dr Mccray Please contact your doctor or call one of the physicians/clinics you have been referred to that are listed on the Patient Visit Information form that is included in your discharge packet. Bring any paperwork you were given at discharge with you along with any medications you are taking to your follow up visit. Our treatment cannot replace ongoing medical care by a primary care provider (PCP) outside of the emergency department. Thank you for allowing the [facility] team to be part of your care today. Forms: [employer] (Yakut)
[2017-12-01 21:35] LABS: BASO # 0.08 K/mm3 (0.0-2.0); BASO % 0.6 % (0.0-3.0); EOS # 0.4 (0.0-0.7); EOS % 3.3 % (1.5-5.0); GRAN # 7.04 (1.4-6.5); GRAN % 56.7 % (50.0-68.0); HEMOGLOBIN 13.6 g/dL (12.0-16.0); LYMPH # 4.2 (1.2-3.4); LYMPH % 33.8 % (22.0-35.0); MEAN CELL VOLUME 79.2 fl (80.0-105.0); MEAN CORPUSCULAR HEMOGLOBIN 28.8 pg (25.0-35.0); MEAN CORPUSCULAR HGB CONC 36.4 g/dl (31.0-37.0); MEAN PLATELET VOLUME 10.1 fl (7.0-11.0); MONO # 0.7 (0.1-0.6); MONO % 5.6 % (1.0-6.0); RBC 4.72 10^6/uL (3.5-6.1); RED CELL DISTRIBUTION WIDTH 14.6 % (11.5-14.5); WHITE BLOOD COUNT 12.4 10^3/ul (4.5-11.0)
[2017-12-01 21:46] LABS: ALB/GLOB RATIO 1.2 (1.1-1.8); ALT/SGPT 27 U/L (7-56); AST/SGOT 23 U/L (14-36); BLOOD UREA NITROGEN 13 mg/dL (7-21); GFR AFRICAN-AMERICAN > 60; GFR NON-AFRICAN AMERICAN > 60
[2017-12-01 22:10] LABS: PH,URINE 6.5 (4.7-8.0); URINE APPEARANCE CLEAR (CLEAR); URINE BILIRUBIN NEGATIVE (NEGATIVE); URINE BLOOD NEGATIVE (NEGATIVE); URINE COLOR YELLOW (YELLOW); URINE GLUCOSE (UA) NEGATIVE (NEGATIVE); URINE LEUKOCYTE ESTERASE SMALL Leu/uL (NEGATIVE); URINE PROTEIN TRACE mg/dL (<30 mg/dL)
[2017-12-01 22:17] LABS: URINE CALCIUM OXALATE CRYSTALS TRACE /hpf; URINE RBC NEGATIVE /hpf (0-2)
[2017-12-01 23:17] VITALS: BP 146/72; PULSE 80; RESP 16; O2SAT 99
== END 2017-12-01 23:16 | disposition home or self-care (01) ==
LOC: ED 19:39
DX: J11.1 Influenza due to unidentified influenza virus with other respiratory manifestations (principal); M25.50 Pain in unspecified joint; I10 Essential (primary) hypertension

== ENCOUNTER 2018-10-30 19:14 | Emergency (ER) | payer MEDICAID ==
[2018-10-30 19:29] VITALS: BMI 31.5
[2018-10-30 19:35] VITALS: RESP 18; TEMP 98.2
[2018-10-30] MEDS ORDERED: Sodium Chloride 0.9% 1,000 ML IV STA (19:53)
--- NOTE | 2018-10-30 19:55 | ED PDOC ---
Arrival/HPI - General Chief Complaint: Abdominal Pain Time Seen by Provider: 10/30/18 19:47 - History of Present Illness Narrative History of Present Illness (Text): 63 y/o F p/w L flank pain x 1 month. Pain radiates to LLQ, associated with nausea. Denies fever, chills, chest pain, dyspnea, vomiting, diarrhea. Past Medical History - Provider Review Nursing Documentation Reviewed: Yes - Infectious Disease Hx of Infectious Diseases: None - Cardiac Hx Cardiac Disorders: Yes Hx Hypertension: Yes - Pulmonary Hx Respiratory Disorders: No - Neurological Hx Neurological Disorder: No - HEENT Hx HEENT Disorder: No - Renal Hx Renal Disorder: No - Endocrine/Metabolic Hx Endocrine Disorders: No - Hematological/Oncological Hx Blood Disorders: No - Integumentary Hx Dermatological Disorder: No - Musculoskeletal/Rheumatological Hx Musculoskeletal Disorders: No Hx Back Pain: Yes - Gastrointestinal Hx Gastrointestinal Disorders: No - Genitourinary/Gynecological Hx Genitourinary Disorders: No - Psychiatric Hx Psychophysiologic Disorder: Yes Hx Depression: Yes Hx Substance Use: No - Anesthesia Hx Anesthesia: No Hx Anesthesia Reactions: No Hx Malignant Hyperthermia: No Family/Social History - Physician Review Nursing Documentation Reviewed: Yes Family/Social History: No Known Family HX Smoking Status: Never Smoked Hx Alcohol Use: No Hx Substance Use: No Allergies/Home Meds Allergies/Adverse Reactions: Allergies No Known Allergies Allergy (Verified 10/30/18 19:28) Review of Systems - Physician Review All systems were reviewed & negative as marked: Yes - Review of Systems Constitutional: absent: Fevers Respiratory: absent: SOB Physical Exam - Physical Exam Narrative Physical Exam (Text): gen nad head nc/at eyes perrl ent mmm neck supple chest no tenderness cv reg rate lungs cta b/l abd soft, nt back L flank tenderness, no cva tenderness skin no rash neuro alert extremities no edema Vital Signs Temp Pulse Resp BP Pulse Ox 10/30/18 19:34 98.2 F 87 18 115/69 96 Medical Decision Making ED Course and Treatment: 10/30/18 22:33 CXR no pneumonia, no pleural effusion, no rib fracture. 10/30/2018 22:28 Abd/Pelvis CT IMPRESSION: 1. Diverticulosis coli of the left hemicolon with suspected mild acute diverticulitis in the lower descending-sigmoid regions. No complication detected. 2. 1.4 cm right adrenal cortical adenoma. 3. The gallbladder is partially contracted. Dictator: David Garcia MD Patient in no acute distress. Antibiotics administered and prescribed. Vitals normal. Discharged home, f/u PMD, return to ED for worsening pain, fever, vomiting, dyspnea, or any other problem. - Lab Interpretations I have reviewed the lab results: Yes - RAD Interpretation Radiology Orders: 10/30/18 19:52 CHEST PORTABLE [RAD] Stat 10/30/18 19:53 ABD & PELVIS IV CONTRAST ONLY [CT] Stat - Medication Orders Current Medication Orders: Sodium Chloride (Sodium Chloride 0.9%) 1,000 mls @ 999 mls/hr IV .Q1H1M STA Stop: 10/30/18 20:53 Ketorolac Tromethamine (Toradol) 30 mg IVP STAT STA Stop: 10/30/18 19:54 Disposition/Present on Arrival - Present on Arrival Any Indicators Present on Arrival: No History of DVT/PE: No History of Uncontrolled Diabetes: No Urinary Catheter: No History of Decub. Ulcer: No History Surgical Site Infection Following: None - Disposition Have Diagnosis and Disposition been Completed?: Yes Diagnosis: Diverticulitis Disposition: HOME/ ROUTINE Disposition Time: 22:29 Patient Plan: Discharge Condition: GOOD Discharge Instructions (ExitCare): Diverticulitis (DC) Print Language: KOSOVAN Prescriptions: levoFLOXacin [Levaquin] 1 tab PO DAILY #10 tab Metronidazole [Flagyl] 500 mg PO Q8 #30 tab Ondansetron ODT [Zofran ODT] 4 mg PO Q8 #12 odt Referrals: Sandy Mccray MD [Family Provider] - Follow up with primary Forms: [employer] (Syriac)
[2018-10-30 20:25] LABS: URINE APPEARANCE CLEAR (CLEAR); URINE BILIRUBIN NEGATIVE (NEGATIVE); URINE BLOOD NEGATIVE (NEGATIVE); URINE COLOR YELLOW (YELLOW); URINE GLUCOSE (UA) NEGATIVE (NEGATIVE); URINE LEUKOCYTE ESTERASE SMALL Leu/uL (NEGATIVE); URINE PROTEIN NEGATIVE mg/dL (<30 mg/dL); URINE UROBILINOGEN 0.2 E.U./dL (<1 E.U./dL)
[2018-10-30 20:30] LABS: URINE BACTERIA SMALL /hpf
[2018-10-30 20:34] LABS: BASO # 0.07 K/mm3 (0.0-2.0); BASO % 0.5 % (0.0-3.0); EOS # 0.3 (0.0-0.7); EOS % 2.5 % (1.5-5.0); LYMPH # 4.7 (1.2-3.4); LYMPH % 35.3 % (22.0-35.0); MEAN CELL VOLUME 79.8 fl (80.0-105.0); MEAN CORPUSCULAR HEMOGLOBIN 28.8 pg (25.0-35.0); MEAN CORPUSCULAR HGB CONC 36.1 g/dl (31.0-37.0); MEAN PLATELET VOLUME 10.2 fl (7.0-11.0); MONO # 0.7 (0.1-0.6); RBC 5.2 10^6/uL (3.5-6.1); RED CELL DISTRIBUTION WIDTH 14.7 % (11.5-14.5); WHITE BLOOD COUNT 13.2 10^3/uL (4.5-11.0)
[2018-10-30 21:04] LABS: ALB/GLOB RATIO 1.1 (1.1-1.8); ALBUMIN 3.6 g/dL (3.0-4.8); ALT/SGPT 14 U/L (7-56); AST/SGOT 21 U/L (14-36); BLOOD UREA NITROGEN 16 mg/dL (7-21); CALCIUM 8.6 mg/dL (8.4-10.5); GFR NON-AFRICAN AMERICAN > 60; LIPASE 91 U/L (23-300)
[2018-10-30] MEDS ORDERED: Iohexol 350 MG/100 ML VIAL ONE (21:33)
[2018-10-30] MEDS ORDERED: levoFLOXacin 750 MG TAB PO STA (22:41)
[2018-10-30 23:03] VITALS: BP 118/62; PULSE 80; O2SAT 100
--- NOTE | 2018-10-31 08:34 | RAD ---
HISTORY: r/o PNA COMPARISON: Chest x-ray performed 05/31/17 TECHNIQUE: Chest, one view. FINDINGS: Examination limited by habitus and hypoinflation. LUNGS: No focal consolidation. Please note that chest x-ray has limited sensitivity for the detection of pulmonary masses. PLEURA: No significant pleural effusion identified. No definite pneumothorax . CARDIOVASCULAR: Heart size appears borderline enlarged. Ectatic aorta. OSSEOUS STRUCTURES: No acute osseous abnormality identified. VISUALIZED UPPER ABDOMEN: Unremarkable. OTHER FINDINGS: None. IMPRESSION: Aortic ectasia. Borderline cardiomegaly likely exaggerated by hypoinflation.
--- NOTE | 2018-10-31 10:32 | CT ---
Date of service: 10/30/2018 PROCEDURE: CT Abdomen and Pelvis with contrast HISTORY: L flank pain COMPARISON: None available TECHNIQUE: Contrast dose: 100 mL Omnipaque 350 IV Radiation dose: Total exam DLP = 906.8 mGy-cm. This CT exam was performed using one or more of the following dose reduction techniques: Automated exposure control, adjustment of the mA and/or kV according to patient size, and/or use of iterative reconstruction technique. FINDINGS: LOWER THORAX: Mild basilar atelectasis. No visible pleural effusion or pneumothorax. LIVER: Hypoattenuation of the liver compatible with hepatic steatosis. GALLBLADDER AND BILE DUCTS: Contracted gallbladder limits evaluation. PANCREAS: Fatty atrophy. SPLEEN: Unremarkable. ADRENALS: Indeterminate 9 mm right adrenal gland nodule measures approximately 87 Hounsfield units. The left adrenal gland appears unremarkable. KIDNEYS AND URETERS: The kidneys enhance symmetrically. No hydronephrosis or obstructing calculus identified. Too small to characterize right renal hypodensity; statistically likely cyst. VASCULATURE: No aortic aneurysm. No atherosclerotic calcification or mural plaque present. BOWEL: Stomach is nondistended. Lack of oral contrast limits evaluation for bowel pathology. Bowel loops appear within normal limits of caliber without evidence of obstruction. Diverticulosis. Mild wall thickening and inflammatory changes involving the rectosigmoid colon possibly related to acute diverticulitis. APPENDIX: The appendix appears within normal limits of caliber. No secondary signs of acute appendicitis. PERITONEUM: No significant free fluid. No definite free air. LYMPH NODES: No bulky adenopathy identified. BLADDER: Unremarkable. REPRODUCTIVE: Uterus is present. BONES: Osseous demineralization. Degenerative changes. OTHER FINDINGS: Tiny fat containing umbilical hernia. IMPRESSION: Indeterminate 9 mm right adrenal gland nodule measures approximately 9 HU; recommend dedicated cross-sectional imaging for further characterization. Diverticulosis. Minimal inflammatory changes and wall thickening noted at the level of the rectosigmoid colon possibly related to acute diverticulitis. Hypoattenuation of the liver compatible with hepatic steatosis. Too small to characterize right renal hypodensity, statistically likely cyst. Additional findings as above. Preliminary impression was provided by [employer]. Study marked for PA review.
== END 2018-10-30 23:03 | disposition home or self-care (01) ==
LOC: ED 19:14
DX: K57.32 Diverticulitis of large intestine without perforation or abscess without bleeding (principal); I10 Essential (primary) hypertension
CPT/HCPCS: 71045; 74177; 80053; 81001; 83690; 85025; 87086; 96361; 96374; 96375; 99284; J1885; J2405; J7030; Q9967